=== PATIENT | female | born 1975 | race Caucasian/White ===

== ENCOUNTER 2025-08-23 05:49 | Day surgery (SDC) | payer OTHER ==
[~2025-08-23] VITALS: Ht 160 cm; Wt 141.0 kg
[~2025-08-23 05:49] MED LIST: ATIVAN0.5 MG PO; BUSPIRONE HCL5 MG PO; ERYTHROMYCIN1 GM OP; FLUOXETINE HCL40 MG PO; LACTATED RINGER'S 1,000 ML IV SCH; LEVOTHYROXINE50 MC1 PO; LIPITOR20 MG PO; METFORMIN HCL500 M2 PO; NEURONTIN300 MG PO; OMEPRAZOLE20 MG PO; SEROQUEL100 MG PO; TRULICITY4.5 MG/0.5 SUB-Q
[2025-08-23 06:07] VITALS: BP 143/73
[2025-08-23] MEDS ORDERED: IBLOOD GLUCOSE TEST STRIP 1 EA TEST VI PRN (07:00)
[2025-08-23] MEDS ORDERED: LIDOCAINE HCL 1% 5 ML SDV INJ ONE (07:00)
[2025-08-23] MEDS ORDERED: LIDOCAINE HCL 2% 5 ML SDV ONE (07:08)
[2025-08-23] MEDS ORDERED: LACTATED RINGER'S 1,000 ML IV ONE (08:25)
--- NOTE | 2025-08-23 08:40 | NUR ---
08/23/25 0840 Leanne Pinto 0833-PATIENT ARRIVED TO PACU ON CPAP WITH 6L RR EVEN. PATIENT LAYING LEFT LATERAL REACTIVE TO VERBAL STIMULI OPENING EYES. ABDOMEN ROUND AND SOFT. IVF INFUSING. SR HR 70'S. 0840-PATIENT AROUSING ENCOURAGED TO PASS GAS. CPAP ON 100% RR EVEN. CLOSES EYES.
[2025-08-23 09:11] VITALS: BP 114/80
--- NOTE | 2025-09-04 14:33 | PATH ---
[facility] [address], [place] [address] Signed THIS IS AN ADDENDUM REPORT SPECIMEN(S): A RANDOM ASCENDING BIOPSY SPECIMEN(S): B RANDOM TRANSVERSE BIOPSY SPECIMEN(S): C RANDOM DESCENDING BIOPSY SPECIMEN(S): D RECTAL POLYP, 15 CM SPECIMEN(S): E ANTRAL BIOPSY SPECIMEN(S): F EG JUNCTION BIOPSY SPECIMEN SOURCE: A. RANDOM ASCENDING BIOPSY B. RANDOM TRANSVERSE BIOPSY C. RANDOM DESCENDING BIOPSY D. RECTAL POLYP, 15 CM E. ANTRAL BIOPSY F. EG JUNCTION BIOPSY CLINICAL HISTORY: Epigastric pain, colon cancer screening, diarrhea. Post-Rectal polyps, mild reflux gastritis Rule out microscopic colitis. A-C) biopsy, D) polyp, E) antral biopsies for H. pylori, F) biopsy FINAL PATHOLOGIC DIAGNOSIS: A. Random ascending biopsy: - Tubular adenoma, negative for high-grade dysplasia. B. Random transverse biopsy - Colonic mucosa with no significant pathologic abnormalities. - Negative for inflammation or dysplasia. C. Random descending biopsy - Colonic mucosa with no significant pathologic abnormalities. - Negative for inflammation or dysplasia. D. Rectal polyp, 15 cm - Hyperplastic polyp, negative for dysplasia. E. Antral biopsy - Gastric mucosa with no significant pathologic abnormalities. - Negative for inflammation or intestinal metaplasia. F. Gastroesophageal junction, biopsy: - Gastric type mucosa with no significant pathologic abnormalities. - Negative for inflammation or intestinal metaplasia. - No esophageal squamous mucosa identified. PATIENT NAME: SHANON MO ALFRED PATHOLOGY DATE OF : 71 REPORT #: [id number] PHYSICIAN: LINDEN ZAMBRANO PCP: SHANTELL WEAVER PA-C REPORT IS CONFIDENTIAL AND NOT TO BE RELEASED WITHOUT AUTHORIZATION [facility] [address] [place], [place] [address] Signed NA MICROSCOPIC EXAMINATION: Histologic sections of all submitted blocks are examined by light microscopy. These findings, together with the gross examination, support the pathologic diagnosis. GROSS DESCRIPTION: A. The specimen, labeled and designated "Bhupinder, random ascending biopsy," is received in formalin and consists of six cates soft tissue fragments, ranging from 0.1-0.3 cm. Entirely submitted in (A1). B. The specimen, labeled and designated "Bhupinder, random transverse biopsy," is received in formalin and consists of multiple cates soft tissue fragments, 0.1-0.3 cm. Entirely submitted in (B1). C. The specimen, labeled and designated "Bhupinder, random descending biopsy," is received in formalin and consists of five cates soft tissue fragments, ranging from 0.2-0.3 cm. Entirely submitted in (C1). D. The specimen, labeled and designated "Bhupinder, rectal polyp, 15 cm," is received in formalin and consists of three cates soft tissue fragments, ranging from 0.1-0.3 cm. Entirely submitted in (D1). E. The specimen, labeled and designated "Bhupinder, antral biopsy," is received in formalin and consists of two cates soft tissue fragments, ranging from 0.1-0.3 cm. Entirely submitted in (E1). F. The specimen, labeled and designated "Bhupinder, EG junction biopsy," is received in formalin and consists of two cates soft tissue fragments, ranging from 0.2-0.3 cm. Entirely submitted in (F1). AB (under the direct supervision of a pathologist) The Gross Description was prepared using a voice recognition system. The report was reviewed for accuracy; however, sound-alike word errors, addition and/or deletions may occur. If there is any question about this report, please contact Client Services. ADDITIONAL NOTES: Immunohistochemical and/or in situ hybridization studies if performed in this case included appropriate positive controls that reacted as expected. This test was developed and its performance characteristics determined by [facility]. It has not been cleared or approved by the U.S. Food and Drug Administration. The FDA has determined that such clearance or approval is not necessary. This test is used for clinical purposes. It should not be regarded as investigational or for research. [facility] is certified under the PATIENT NAME: SHANON MO ALFRED PATHOLOGY DATE OF : 71 REPORT #: [id number] PHYSICIAN: LINDEN ZAMBRANO PCP: SHANTELL WEAVER PA-C REPORT IS CONFIDENTIAL AND NOT TO BE RELEASED WITHOUT AUTHORIZATION [address] [address] Signed Clinical Laboratory Improvement Amendments of 1988 (CLIA) as qualified to perform high complexity clinical laboratory testing. PERFORMING LABORATORY: Technical component was performed by [facility], [address] [place] [address] (CLIA# [id number]). Professional interpretation was performed by [email or web address], [address] [place] [address] (CLIA#: [id number]). ADDITIONAL NOTES: Immunohistochemical and/or in situ hybridization studies if performed in this case included appropriate positive controls that reacted as expected. This test was developed and its performance characteristics determined by [facility]. It has not been cleared or approved by the U.S. Food and Drug Administration. The FDA has determined that such clearance or approval is not necessary. This test is used for clinical purposes. It should not be regarded as investigational or for research. [facility] is certified under the Clinical Laboratory Improvement Amendments of 1988 (CLIA) as qualified to perform high complexity clinical laboratory testing. Professional interpretation was performed by [email or web address] [place] [facility] [place], [address] [place] [address] (CLIA#: [id number]). REASON FOR ADDENDUM: To add immunohistochemical stain results. At the request of Dr. Jansen, immunohistochemical stain for H. pylori is performed on gastric biopsy (block AE) and it is negative for organisms. Control slide stained appropriately. NA Diagnostician: Chey Dumont MD Pathologist Electronically Signed 09/04/2025 Copies: ~ PATIENT NAME: SHANON MO PATHOLOGY DATE OF : 71 REPORT #: [id number] PHYSICIAN: [facility] PCP: SHANTELL WEAVER PA-C REPORT IS CONFIDENTIAL AND NOT TO BE RELEASED WITHOUT AUTHORIZATION
== END 2025-08-23 09:15 | disposition home or self-care (01) ==
LOC: DS 05:49 → OPS 05:49 → DS 08:10 → OPS 09:15 → DS 11:30
PROVIDERS: ATTEND Surgery
PROC: 0DBP8ZX Excision of Rectum, Via Natural or Artificial Opening Endoscopic, Diagnostic (ICD-10-PCS; 2025-08-23)
PROC: 0DBF8ZX Excision of Right Large Intestine, Via Natural or Artificial Opening Endoscopic, Diagnostic (ICD-10-PCS; 2025-08-23)
PROC: 0DB48ZX Excision of Esophagogastric Junction, Via Natural or Artificial Opening Endoscopic, Diagnostic (ICD-10-PCS; 2025-08-23)
PROC: 0DB68ZX Excision of Stomach, Via Natural or Artificial Opening Endoscopic, Diagnostic (ICD-10-PCS; 2025-08-23)
PROC: 0DBG8ZX Excision of Left Large Intestine, Via Natural or Artificial Opening Endoscopic, Diagnostic (ICD-10-PCS; principal; 2025-08-23 07:30)
PROC: 0DBL8ZX Excision of Transverse Colon, Via Natural or Artificial Opening Endoscopic, Diagnostic (ICD-10-PCS; 2025-08-23 07:30)
DX: D12.2 Benign neoplasm of ascending colon (principal); K62.1 Rectal polyp; K29.60 Other gastritis without bleeding; E11.9 Type 2 diabetes mellitus without complications; K21.9 Gastro-esophageal reflux disease without esophagitis; E03.9 Hypothyroidism, unspecified; Z88.8 Allergy status to other drugs, medicaments and biological substances; Z88.2 Allergy status to sulfonamides; Z79.890 Hormone replacement therapy; Z79.899 Other long term (current) drug therapy
CPT/HCPCS: 00813; 88305; 88342; J2003; J2704; J7121